=== PATIENT | male | born 1985 | race Caucasian/White ===

== ENCOUNTER 2020-04-10 17:55 | Emergency (ER) | payer SELFPAY ==
[2020-04-10 17:59] VITALS: BP 130/86; PULSE 92; RESP 18; TEMP 36.6; O2SAT 99; BMI 23.0
--- NOTE | 2020-04-10 18:09 | W.ED.HEATRA ---
HPI - Head Injury General: Chief complaint: Head Injury Stated complaint: head injury Time Seen by Provider: 04/10/20 18:02 History of Present Illness: HPI Narrative: Patient is a 34-year-old male comes to the ED after head injury. Patient says on Thursday he was skateboarding down the road was a steep hill. He was not wearing a helmet and he had some loose gravel and fell down hitting his head on the concrete. He estimated when he fell off a skateboard he was probably going over 20 miles an hour. He thinks he briefly lost consciousness and he did have some bleeding on the top of his head. He says the rest of Thursday, Thursday and today he has felt nauseous, dizzy and has had headache. He also states he has trouble focusing or concentrating when he is up doing stuff for a while he says he starts getting nauseous. Patient took a dose of ibuprofen before coming to the ED and says his headache is better. His main concern is getting some imaging of his head to make sure he did not do any serious damage. Patient says he is up-to-date on his tetanus and has gotten it within the last 10 years. Associated symptoms: Reports nausea; Deny neck pain or vomiting Review of Systems Const: Denies: fever(s), chills or fatigue Eyes: Denies: change in vision or eye discomfort ENMT: Denies: throat pain, odynophagia, nasal discharge or nasal congestion Card: Denies: chest pain, palpitations, edema, swelling of feet/ankles, dyspnea on exertion or orthopnea Resp: Denies: dyspnea, productive cough or non-productive cough GI: Reports: nausea; Denies: abdominal pain, vomiting, diarrhea, constipation or hematochezia : Denies: flank pain, difficulty urinating, dysuria or hematuria Musc: Denies: neck pain, back pain or extremity swelling Skin/Breast: Denies: rash or new lesions Neuro: Reports: headache(s), dizziness and other (trouble concentrating/focusing); Denies: numbness in extremities or weakness in extremities Physical Exam Const: COMMON NORMALS: no acute distress, patient oriented x3, healthy appearing and alert GENERAL APPEARANCE: cooperative and comfortable HENMT: COMMON NORMALS: normocephalic HEAD & SCALP: normocephalic and abrasion vertex Head abrasion size: 2 cm; no Holden's sign, no palpable skull fracture, no raccoon eyes and no scalp tenderness MOUTH: Normal oral and palatal mucosa present THROAT: posterior oropharynx normal and uvula midline Eye: COMMON NORMALS: Equal, round and reactive pupils present, EOMs intact bilaterally, conjunctivae normal and normal visual smith by confrontation CONJUNCTIVA: Yes conjunctivae normal PUPIL: Yes Equal, round and reactive pupils present Neck/C-Spine: COMMON NORMALS: supple GENERAL: Yes normal visual inspection Resp: COMMON NORMALS: normal respiratory effort, No retractions, No use of accessory muscles and clear to auscultation bilaterally AUSCULTATION: clear to auscultation bilaterally Cardio: COMMON NORMALS: regular rate, regular rhythm, S1 normal heart sound present, S2 normal heart sound present, No gallops present (Cardio), No clicks present (Cardio), No murmurs present (Cardio) and Peripheral pulses 2+ throughout RATE: regular rate RHYTHM: regular rhythm HEART SOUNDS: S1 normal heart sound present and S2 normal heart sound present PERIPHERAL PULSES: Peripheral pulses 2+ throughout GI: COMMON NORMALS: Normal to inspection, nondistended, normoactive bowel sounds present, Soft to palpation, non-tender and no masses PALPATION: Yes Soft to palpation : COMMON NORMALS: Yes no CVA tenderness BLADDER/KIDNEY EXAM: Yes no CVA tenderness Back/Pelvis: COMMON NORMALS: no CVA tenderness Extremity: COMMON NORMALS: normal to inspection Neuro: COMMON NORMALS: patient oriented x3, CN's II-XII intact bilaterally, moves all extremities, no focal motor deficits and no sensory deficits noted SENSORIUM/ORIENTATION: Yes alert COORDINATION/BALANCE: [id number] test normal SENSORY EXAM: Yes extremities (intact) MOTOR EXAM: 5/5 motor strength present throughout COORDINATION: [id number]-[id number] test normal Skin: GENERAL SKIN EXAM: dry skin Course Vital Signs: Vital signs: Vital Signs Temperature 97.9 F 04/10/20 17:59 Pulse Rate 87 04/10/20 19:09 Respiratory Rate 16 04/10/20 19:09 Blood Pressure 137/68 04/10/20 19:09 Pulse Oximetry 98 04/10/20 19:09 MDM - Head Injury MDM Narrative: Medical decision making narrative: Patient is a 34-year-old male who comes to the ED with concussion symptoms after head injury. Patient was skateboarding and fell off and hit head on concrete approximately 2 days ago. He was not wearing a helmet. He states he had brief loss of consciousness. Neuro exam completely normal while here in the ED. CT of head and CT of cervical spine no acute findings. Patient was diagnosed with concussion and discharged. He was told to follow-up with PCP in 7 to 10 days for reevaluation. Return to ED precautions given. Patient understood and agree with plan. Imaging Data^: CT Head: Attestation: I personally reviewed and interpreted this imaging study as follows: Radiologist's impression: [facility] [address] [place] [id number] Scan Report Signed Patient: Sumit Mayberry Unit #: [id number] : 1985 Age/Sex: 34 / M ADM Date: 04/10/20 Loc: ER Room/Bed: Attending Dr: Ordering Provider/Ordering MD: James Arana Date of Service: 04/10/20 Procedure(s): CT head wo con* [id number] Accession Number(s): [id number] Report Number: [id number] PROCEDURE INFORMATION: Exam: CT Head Without Contrast Exam date and time: 04/10/2020 6:15 PM Age: 34 years old Clinical indication: Injury or trauma; Fall; Blunt trauma (contusions or hematomas); Dizziness; Additional info: Skateboarding fall-hit head TECHNIQUE: Imaging protocol: Computed tomography of the head without contrast. Radiation optimization: All CT scans at this facility use at least one of these dose optimization techniques: automated exposure control; mA and/or kV adjustment per patient size (includes targeted exams where dose is matched to clinical indication); or iterative reconstruction. COMPARISON: No relevant prior studies available. RADIATION DOSE METRICS: Total DLP (mGy-cm): 865.33 FINDINGS: Brain: Normal. No hemorrhage. Unremarkable white matter. No mass effect. Cerebral ventricles: No ventriculomegaly. Bones/joints: Unremarkable. No acute fracture. Paranasal sinuses: Visualized sinuses are unremarkable. No fluid levels. Mastoid air cells: Visualized mastoid air cells are well aerated. Soft tissues: Unremarkable. CT/CT head wo con* [id number] IMPRESSION: No acute intracranial abnormality. Radiation Dose CTDIVOL = (mGy): DLP = 865.33 (mGy-cm) Dictated By: Marko Diaz Signed By: Marko Diaz Signed Date/Time: 04/10/201834 DD/ [address]: Attestation: I personally reviewed and interpreted this imaging study as follows: Radiologist's impression: [employer] [facility] [address] [address] Scan Report Signed Patient: Sumit Mayberry Unit #: [id number] : 1985 Age/Sex: 34 / M ADM Date: 04/10/20 Loc: ER Room/Bed: Attending Dr: Ordering Provider/Ordering MD: James Arana Date of Service: 04/10/20 Procedure(s): CT cervical spin wo con* [id number] Accession Number(s): [id number] Report Number: [id number] PROCEDURE INFORMATION: Exam: CT Cervical Spine Without Contrast Exam date and time: 04/10/2020 6:15 PM Age: 34 years old Clinical indication: Pain and injury or trauma; Fall; Blunt trauma; Neck pain; Additional info: Skateboarding fall-hit head TECHNIQUE: Imaging protocol: Computed tomography images of the cervical spine without contrast. Radiation optimization: All CT scans at this facility use at least one of these dose optimization techniques: automated exposure control; mA and/or kV adjustment per patient size (includes targeted exams where dose is matched to clinical indication); or iterative reconstruction. COMPARISON: No relevant prior studies available. RADIATION DOSE METRICS: Total DLP (mGy-cm): 654.93 FINDINGS: Vertebrae: No acute fracture. Normal alignment. C2-C3: No significant disc protrusion. No severe spinal canal stenosis. No significant neural foraminal narrowing. C3-C4: No significant disc protrusion. No severe spinal canal stenosis. No significant neural foraminal narrowing. C4-C5: No significant disc protrusion. No severe spinal canal stenosis. No significant neural foraminal narrowing. C5-C6: No significant disc protrusion. No severe spinal canal stenosis. No significant neural foraminal narrowing. C6-C7: No significant disc protrusion. No severe spinal canal stenosis. No significant neural foraminal narrowing. C7-T1: No significant disc protrusion. No severe spinal canal stenosis. No significant neural foraminal narrowing. Soft tissues: Unremarkable. Lungs: Lung apices are normal. CT/CT cervical spin wo con* [id number] IMPRESSION: No acute findings. Radiation Dose CTDIVOL = (mGy): DLP = 654.93 (mGy-cm) Dictated By: Marko Diaz Signed By: Marko Diaz Signed Date/Time: 04/10/201840 DD/ 39 Discharge Plan Discharge Patient Disposition: Home Clinical Impression: Concussion with loss of consciousness Qualifiers: Encounter type: initial encounter Qualified Code(s): S06.0X9A - Concussion with loss of consciousness of unspecified duration, initial encounter Condition: Stable Prescriptions: No Action ibuprofen 200 mg Tablet 200 - 400 mg PO Q4H PRN (Reason: Pain) RF: 0 Discharge Orders: Discharge ED (Routine); Ordered 04/10/20 Ordered By: James Arana Discharge Diet: Regular Discharge Activity: Limit activity as instructed Patient Instructions: Concussion (ED) Activity Restrictions/Additional Instructions: Follow-up with medical provider as directed in 7 to 10 days for reevaluation. Avoid any activity that could cause additional head trauma until concussion symptoms are completely resolved and you are cleared by doctor. Take take [id number] ibuprofen or Tylenol for any headaches. Rest and avoid any activities that worsen concussion symptoms. Return to the ER or your medical provider if condition worsens. Please read and understand discharge instructions. If any questions, please ask. Coding Level of Care Code ED Building Services Technician for Blaire Corona Exam Comprehensive
[2020-04-10 19:09] VITALS: BP 137/68; PULSE 87; RESP 16; O2SAT 98
== END 2020-04-10 19:09 | disposition home or self-care (01) ==
PROVIDERS: Emergency Provider Physician Assistant
DX: S06.0X9A Concussion with loss of consciousness of unspecified duration, initial encounter (principal); V00.131A Fall from skateboard, initial encounter
CPT/HCPCS: 12345; 70450; 72125; 99281; 99282

== ENCOUNTER 2021-01-24 02:45 | Emergency (ER) | payer SELFPAY ==
[2021-01-24 02:49] VITALS: BP 121/66; PULSE 72; RESP 16; TEMP 36.4; O2SAT 100; BMI 22.1
--- NOTE | 2021-01-24 02:58 | ED_ITS ---
HPI - Ear Problem General: Chief complaint: Ear Stated complaint: Right ear pain Time Seen by Provider: 01/24/21 02:48 Source: patient Mode of arrival: ambulatory Limitations: no limitations History of Present Illness: HPI Narrative: 35-year-old male states has been having right-sided ear pain for last 6 hours he states pain is sharp in nature rates it a 7 out of 10 denies any fever denies any worsening improving factors he states he feels like he has pressure behind his ear. Denies headache denies vomiting MD Complaint: ear pain Location: right ear Duration: constant Severity: moderate Relieving factors: nothing Exacerbating factors: nothing Associated symptoms: Reports ear or mastoid pain; Denies fever(s), headache(s) or neck pain Review of Systems Const: Denies: fever(s), chills, body aches or change in appetite Eyes: Denies: blurry vision or eye discomfort ENMT: Reports: ear or mastoid pain; Denies: throat pain or dental pain Card: Denies: chest pain Resp: Denies: dyspnea GI: Denies: abdominal pain, nausea, vomiting or diarrhea : Denies: dysuria Musc: Denies: neck pain or back pain Skin/Breast: Denies: rash Neuro: Denies: headache(s) Psych: Denies: depression Marquise/Lymph: Denies: easy bruising All/Imm: Denies: urticaria Physical Exam Const: COMMON NORMALS: no acute distress, patient oriented x3 and healthy appearing HENMT: COMMON NORMALS: normocephalic, atraumatic and EAC's normal HEAD & SCALP: normocephalic and atraumatic EXTERNAL AUDITORY CANAL: EAC's normal TYMPANIC MEMBRANE: TM normal on the left and TM abnormal TM laterality: right Details: erythematous and fluid behind TM Eye: COMMON NORMALS: Equal, round and reactive pupils present and EOMs intact bilaterally PUPIL: Yes Equal, round and reactive pupils present Neck/C-Spine: COMMON NORMALS: full ROM and supple Chest: COMMONS NORMALS: normal inspection of the chest and normal palpation of entire chest wall Resp: COMMON NORMALS: normal respiratory effort, No retractions, No use of accessory muscles and clear to auscultation bilaterally AUSCULTATION: clear to auscultation bilaterally Cardio: COMMON NORMALS: regular rate, regular rhythm and No murmurs present (Cardio) RATE: regular rate RHYTHM: regular rhythm GI: COMMON NORMALS: Normal to inspection, nondistended, normoactive bowel sounds present, Soft to palpation, non-tender and no masses PALPATION: Yes Soft to palpation Extremity: COMMON NORMALS: normal to inspection and full ROM Neuro: COMMON NORMALS: patient oriented x3, moves all extremities and no focal motor deficits Psych: COMMON NORMALS: mental status grossly normal, Normal thought process present and cooperative THOUGHT PROCESS: Normal thought process present Skin: COMMON NORMALS: no rashes or lesions noted and no wounds GENERAL SKIN EXAM: no rashes or lesions noted Course Vital Signs: Vital signs: Vital Signs Temperature 97.6 F 01/24/21 02:49 Pulse Rate 72 01/24/21 02:49 Respiratory Rate 16 01/24/21 02:49 Blood Pressure 121/66 01/24/21 02:49 Pulse Oximetry 100 01/24/21 02:49 MDM - Ear MDM Narrative: Medical decision making narrative: Patient presents here with otitis media to the right ear will place patient on antibiotics along with Naprosyn will give him 1 dose of Keflex here patient stable for discharge is to follow-up with PCP and return if worsening. Discharge Plan Discharge Patient Disposition: Home Clinical Impression: Otitis media Qualifiers: Otitis media type: unspecified Chronicity: acute Qualified Code(s): H66.90 - Otitis media, unspecified, unspecified ear Condition: Stable Prescriptions: New cephalexin 500 mg capsule 500 mg PO QID 7 Days Qty: 28 RF: 0 EC-Naprosyn 500 mg tablet,delayed release (DR/EC) 500 mg PO BID PRN (Reason: pain) Qty: 20 RF: 0 No Action ibuprofen 200 mg Tablet 200 - 400 mg PO Q4H PRN (Reason: Pain) RF: 0 Discharge Orders: Discharge ED (Routine); Ordered 01/24/21 Ordered By: Corey Fernandez Discharge Diet: Advance as tolerated Discharge Activity: Resume usual activity Patient Instructions: Otitis Media - Adult Coding Level of Care Code ED Agricultural Education Teacher for Chg Fwd Exam Comprehensive
[2021-01-24] MEDS: naproxen 500 mg Tablet PO (03:00)
[2021-01-24] MEDS: cephALEXin 500 mg Capsule PO (03:01)
[2021-01-24] MEDS: HYDROcodone-acetaminophen 5-325 mg Tablet 1 TAB PO (03:01)
[2021-01-24 03:13] VITALS: BP 121/68; RESP 18; O2SAT 97
== END 2021-01-24 03:10 | disposition home or self-care (01) ==
PROVIDERS: Emergency Provider Emergency Medicine
DX: H66.90 Otitis media, unspecified, unspecified ear (principal)
CPT/HCPCS: 99283

== ENCOUNTER → 2023-08-03 13:54 | Outpatient (BNVA) | payer OTHER, SELFPAY | PROVIDERS: Visit Provider Nurse Practitioner | DX: J02.9 Acute pharyngitis, unspecified (principal) | CPT/HCPCS: 87880 ==